=== PATIENT | female | born 1985 | race Caucasian/White ===

== ENCOUNTER 2017-10-04 02:48 | Emergency (ER) | payer OTHER ==
[2017-10-04] MEDS ORDERED: Albuterol/Ipratropium NEB.SOL* Albuterol 2.5 MG/Ipratropium 0.5 MG 3 ML INH PRN (05:02)
[2017-10-04] MEDS ORDERED: Albuterol 2.5 MG/3 ML NEB.SOL* (0.083%) INH ONE (05:02)
[2017-10-04] MEDS ORDERED: Oseltamivir CAP* 75 MG CAP PO ONE (05:03)
[2017-10-04] MEDS ORDERED: Codeine TAB* 30 MG PO ONE (06:58)
[2017-10-04] MEDS ORDERED: Albuterol HFA INHALER* 8 gm MDI INH SCH (07:00)
--- NOTE | 2017-10-04 07:04 | ED ---
Tanesha Seay Edward, scribed for Addi Calle MD on 10/04/17 at 0447 . Respiratory - HPI Summary HPI Summary: 32 y/o female presents to the ED c/o cough for 1 week, still present. Sx not alleviated or aggravated by anything. Pt is 16 weeks . Associated sx: vomiting starting this morning, slight fever last night (100), CP. Denies PMHx asthma. This is the pt's second . Last cough medications taken at 23: 30. - History of Current Complaint Chief Complaint: EDUpperRespComplaint Stated Complaint: COUGH, FEVER Time Seen by Provider: 10/04/17 04:43 Hx Obtained From: Patient Onset/Duration: Lasting Days Pain Intensity: 7 Character: Cough (Nonproductive) Aggravating Factor(s): Nothing Alleviating Factor(s): Nothing Associated Signs and Symptoms: Fever, Chest Pain with Cough - Allergy/Home Medications Allergies/Adverse Reactions: Allergies Allergy/AdvReac Type Severity Reaction Status Date / Time No Known Allergies Allergy Verified 04/29/15 17:30 PMH/Surg Hx/FS Hx/Imm Hx Previously Healthy: No Endocrine/Hematology History: Denies: Hx Diabetes, Hx Thyroid Disease Cardiovascular History: Denies: Hx Hypertension Respiratory History: Denies: Hx Asthma, Hx Chronic Obstructive Pulmonary Disease (COPD) GI History: Denies: Hx Ulcer - Surgical History Surgery Procedure, Year, and Place: gallbladder removed 2001 Infectious Disease History: No Infectious Disease History: Denies: Hx Hepatitis, Hx Human Immunodeficiency Virus (HIV), Traveled Outside the [place] in Last 30 Days - Social History Alcohol Use: Occasionally Hx Substance Use: No Substance Use Type: Reports: None Hx Tobacco Use: Yes Smoking Status (MU): Current Every Day Smoker Type: Cigarettes Amount Used/How Often: 1/2 PPD Length of Time of Smoking/Using Tobacco: 14 YRS Review of Systems Positive: Fever Eyes: Negative ENT: Negative Positive: Chest Pain Positive: Cough Positive: Vomiting, Nausea Genitourinary: Negative Musculoskeletal: Negative Skin: Negative Neurological: Negative Psychological: Normal All Other Systems Reviewed And Are Negative: Yes Physical Exam - Summary Physical Exam Summary: VITAL SIGNS: Reviewed. GENERAL: Patient is a well-developed and nourished female who is lying comfortable in the stretcher. Patient is not in any acute respiratory distress. HEAD AND FACE: No signs of trauma. No ecchymosis, hematomas or skull depressions. No sinus tenderness. EYES: PERRLA, EOMI x 2, No injected conjunctiva, no nystagmus. EARS: Hearing grossly intact. Ear canals and tympanic membranes are within normal limits. MOUTH: Oropharynx within normal limits. NECK: Supple, trachea is midline, no adenopathy, no JVD, no carotid bruit, no c- spine tenderness, neck with full ROM. CHEST: Symmetric, no tenderness at palpation LUNGS: Bilateral end expiratory wheezes. CVS: Regular rate and rhythm, S1 and S2 present, no murmurs or gallops appreciated. ABDOMEN: Soft, non-tender. No signs of distention. No rebound no guarding, and no masses palpated. Bowel sounds are normal. EXTREMITIES: FROM in all major joints, no edema, no cyanosis or clubbing. NEURO: Alert and oriented x 3. No acute neurological deficits. Speech is normal and follows commands. SKIN: Dry and warm Triage Information Reviewed: Yes Vital Signs On Initial Exam: Initial Vitals Temp Pulse Resp BP Pulse Ox 98.7 F 127 24 121/63 98 10/04/17 02:54 10/04/17 02:54 10/04/17 02:54 10/04/17 02:54 10/04/17 02:54 Vital Signs Reviewed: Yes Diagnostics - Vital Signs Vital Signs Temp Pulse Resp BP Pulse Ox 10/04/17 02:54 98.7 F 127 24 121/63 98 - Laboratory Lab Statement: Any lab studies that have been ordered have been reviewed, and results considered in the medical decision making process. Re-Evaluation - Re-Evaluation 1 Re-Evaluation Time: 06:58 Comment: Pt will be d/c home Disposition - Course Assessment/Plan: 32 y/o female presents to the ED c/o cough for 1 week, still present. Associated sx: vomiting starting this morning, slight fever last night (100), CP. INFLUENZA A POSITIVE. Pt would rather not take Tamiflu b/c there are no studies that say it is safe to take it during . Pt requests something for her cough, will be given codeine for her cough and Tylenol for her fever. Pt will be d/c home with f/u PCP. - Diagnoses Provider Diagnoses: Influenza A Discharge - Discharge Plan Condition: Stable Disposition: HOME Patient Education Materials: Influenza (ED), (ED) Referrals: [facility] [Outside] - 4 Days (PLEASE F/U IN 3-5 DAYS) Additional Instructions: PLEASE RETURN TO THE ED FOR THE RETURN OR WORSENING OF SYMPTOMS The documentation as recorded by the Tanesha vásquez Edward accurately reflects the service I personally performed and the decisions made by Luc killian Abdul, MD.
[2017-10-04 07:25] VITALS: BP 118/80
== END 2017-10-04 07:24 | disposition home or self-care (01) ==
LOC: ED 02:48
DX: O26.892 Other specified pregnancy related conditions, second trimester (principal); J09.X2 Influenza due to identified novel influenza A virus with other respiratory manifestations; O99.332 Smoking (tobacco) complicating pregnancy, second trimester; F17.210 Nicotine dependence, cigarettes, uncomplicated; Z3A.16 16 weeks gestation of pregnancy
CPT/HCPCS: 87502; 94640; 94760; 99282; A9270-GY

== ENCOUNTER 2017-11-06 13:51 | Emergency (ER) | payer OTHER ==
[2017-11-06] MEDS ORDERED: NS 0.9% 1000 ML* 1,000 ML IV ONE (14:12)
[2017-11-06 14:32] LABS: ABS Basophils 0 10^3/ul (0-0.2); ABS Eosinophils 0.2 10^3/ul (0-0.6); ABS Lymphocytes 2.3 10^3/ul (1.0-4.8); ABS Monocytes 0.6 10^3/ul (0-0.8); ABS Neutrophils 7.8 10^3/ul (1.5-7.7); ABS Nucleated RBC 0 10^3/ul; Eosinophil % 2.1 % (0-6); Hematocrit 36 % (35-47); Hemoglobin 12.3 g/dl (12.0-16.0); Lymphocyte % 21.1 % (25-47); Mean Corpuscular HGB Conc 34 g/dl (31-36); Mean Corpuscular Hemoglobin 29 pg (27-31); Mean Corpuscular Volume 84 fL (80-97); Mean Platelet Volume 10 um3 (7.4-10.4); Nucleated Red Blood Cells % 0; Platelet Count 169 10^3/ul (150-450); Red Blood Count 4.25 10^6/ul (4.0-5.4); Red Cell Distribution Width 15 % (10.5-15)
[2017-11-06 15:04] LABS: EGFR Non-African American 114.4 (>60)
--- NOTE | 2017-11-06 15:28 | RAD ---
HISTORY: Vaginal spotting. The gestational age by dates is: 21 weeks, 2 days COMPARISONS: None available at the time of dictation. TECHNIQUE: Multiple transverse and longitudinal ultrasound images were obtained of the gravid uterus using Grayscale, color Doppler, and M-mode Doppler imaging. FINDINGS: /PLACENTAL EVALUATION: Number of fetuses: Single Presentation: The variable cardiac activity: Not detected Gross motion: Not observed Placenta position: Anterior Amniotic fluid volume: Decreased BIOMETRY: Biparietal diameter: 21.4 cm 13 weeks, 4 days Head circumference: 9.46 cm 40 weeks, 3 days No other biometry GESTATIONAL AGE: The gestational age based on the BPD and head circumference ranges from 13 weeks, 4 days to 14 weeks, 3 days. This is discordant with age by dates. ANATOMY: Not evaluated CERVIX: The cervix is long and closed, without funneling.. OTHER: None IMPRESSION: SINGLE INTRAUTERINE GESTATION, WITH A GESTATIONAL AGE BETWEEN 13 WEEKS, 4 DAYS AND 14 WEEKS, 3 DAYS, DISCORDANT WITH THE AGE BY DATES. THE AMNIOTIC FLUID IS DECREASED. NO CARDIAC MOVEMENT OR GROSS MOVEMENT IS IDENTIFIED. THIS IS MOST CONSISTENT WITH EARLY FAILURE. RECOMMEND ATTENTION ON FOLLOW-UP IMAGING
[2017-11-06 16:04] VITALS: BP 114/73
[2017-11-06 16:22] LABS: Urine Appearance Cloudy; Urine Blood 3+ (Negative); Urine Color Yellow; Urine Ketones Negative (Negative); Urine Protein Negative (Negative); Urine Specific Gravity 1.017 (1.010-1.030); Urine Urobilinogen Negative (Negative)
--- NOTE | 2017-11-07 18:39 | ED ---
Mary Kay Seay Gabriel, scribed for Nghia De La Rosa MD on 11/06/17 at 1412 . - HPI Summary HPI Summary: This patient is a 32 year old F presenting to [facility] with a chief complaint of vaginal bleeding that began 2 days ago. Pt is 21 weeks , she determined this using a phone jah. The patient rates the pain 3/10 in severity. Patient reports ABD cramping, back cramping, and n/v. Patient denies fever and dysuria. Pt is still smoking and has not seen an OB. - History of Current Complaint Chief Complaint: EDOBProblems Stated Complaint: ABNORMAL BLEEDING Time Seen by Provider: 11/06/17 14:04 Hx Obtained From: Patient Chief Complaint: Concern for Embryonic Dem, Pain Onset/Duration: Started Days Ago - 2, Still Present Timing: Constant Severity: Mild Current Severity: Mild Pain Intensity: 3 Location of Pain: Other: - back Associated Signs and Symptoms: Positive: Negative - fever and dysuria, Other: - ABD cramping, back cramping, and n/v - Assessment Hx Now: No - Allergies/Home Medications Allergies/Adverse Reactions: Allergies Allergy/AdvReac Type Severity Reaction Status Date / Time No Known Allergies Allergy Verified 11/06/17 14:12 PMH/Surg Hx/FS Hx/Imm Hx Endocrine/Hematology History: Denies: Hx Diabetes, Hx Thyroid Disease Cardiovascular History: Denies: Hx Hypertension Respiratory History: Denies: Hx Asthma, Hx Chronic Obstructive Pulmonary Disease (COPD) GI History: Denies: Hx Ulcer - Surgical History Surgery Procedure, Year, and Place: gallbladder removed 2001 Infectious Disease History: No Infectious Disease History: Denies: Hx Hepatitis, Hx Human Immunodeficiency Virus (HIV), Traveled Outside the [place] in Last 30 Days - Social History Alcohol Use: Occasionally Hx Substance Use: No Substance Use Type: Reports: None Hx Tobacco Use: Yes Smoking Status (MU): Current Every Day Smoker Type: Cigarettes Amount Used/How Often: 1/2 PPD Length of Time of Smoking/Using Tobacco: 14 YRS Review of Systems Negative: Fever Positive: Abdominal Pain - cramping , Vomiting, Nausea Negative: dysuria Positive: Other - back cramping All Other Systems Reviewed And Are Negative: Yes Physical Exam - Summary Physical Exam Summary: VITAL SIGNS: Reviewed. GENERAL: Patient is an obese female who is lying comfortable in the stretcher. Patient is not in any acute respiratory distress. HEAD AND FACE: No signs of trauma. No ecchymosis, hematomas or skull depressions. No sinus tenderness. EYES: PERRLA, EOMI x 2, No injected conjunctiva, no nystagmus. EARS: Hearing grossly intact. Ear canals and tympanic membranes are within normal limits. MOUTH: Oropharynx within normal limits. NECK: Supple, trachea is midline, no adenopathy, no JVD, no carotid bruit, no c- spine tenderness, neck with full ROM. CHEST: Symmetric, no tenderness at palpation LUNGS: Clear to auscultation bilaterally. No wheezing or crackles. CVS: Regular rate and rhythm, S1 and S2 present, no murmurs or gallops appreciated. ABDOMEN: Soft, non-tender. No signs of distention. No rebound no guarding, and no masses palpated. Bowel sounds are normal. EXTREMITIES: FROM in all major joints, no edema, no cyanosis or clubbing. NEURO: Alert and oriented x 3. No acute neurological deficits. Speech is normal and follows commands. SKIN: Dry and warm - Physical Exam Triage Information Reviewed: Yes Vital Signs Reviewed: Yes Diagnostics - Vital Signs Vital Signs Temp Pulse Resp BP Pulse Ox 11/06/17 13:58 98.4 F 100 16 154/71 98 - Laboratory Result Diagrams: 11/06/17 14:22 11/06/17 14:22 Lab Statement: Any lab studies that have been ordered have been reviewed, and results considered in the medical decision making process. - Ultrasound No standard instances Ultrasound Interpretation Completed By: Radiologist - US reveals, per radiologist, SINGLE INTRAUTERINE GESTATION, WITH A GESTATIONAL AGE BETWEEN 13 WEEKS, 4 DAYS AND 14 WEEKS, 3 DAYS, DISCORDANT WITH THE AGE BY DATES. THE AMNIOTIC FLUID IS DECREASED. NO CARDIAC MOVEMENT OR GROSS MOVEMENT IS IDENTIFIED. THIS IS MOST CONSISTENT WITH EARLY FAILURE. RECOMMEND ATTENTION ON FOLLOW-UP IMAGING ED physician has reviewed this radiology report. Course/Dx - Course Assessment/Plan: US reveals, per radiologist, SINGLE INTRAUTERINE GESTATION, WITH A GESTATIONAL AGE BETWEEN 13 WEEKS, 4 DAYS AND 14. WEEKS, 3 DAYS, DISCORDANT WITH THE AGE BY DATES. THE AMNIOTIC FLUID IS DECREASED. NO . CARDIAC MOVEMENT OR GROSS MOVEMENT IS IDENTIFIED. THIS IS MOST CONSISTENT WITH EARLY. FAILURE. RECOMMEND ATTENTION ON FOLLOW-UP IMAGING. Test results with no significant abnormalities except for a beta HCG of 214. UA was negative for UTI. In the ED course the patient was given IV fluids.I discussed all the findings and test results with the patient. Patient was instructed to return to the emergency room immediately if any of the symptoms return or worsens. Plan of care was discussed with the patient and understands and agrees. All questions were answered at patient satisfaction. There were no further complaints or concerns. The patient is hemodynamically stable and alert and orinetedx3. Patient was diagnosed with demise. We discussed patient care with Dr. Dillard and they recommended following up with them [facility]. Patient will be discharged and follow up from Dr. Brink/Nishant. The patient is agreeable with this plan. - Diagnoses Provider Diagnoses: demise - Provider Notifications Discussed Care Of Patient With: Patti Dillard Time Discussed With Above Provider: 16:13 Instructed by Provider To: Have Pt Call For Appt. Discharge - Discharge Plan Condition: Stable Disposition: HOME Referrals: Patti Dillard MD [Medical Doctor] - As Soon As Possible Additional Instructions: RETURN TO EMERGENCY DEPARTMENT FOR ANY NEW OR WORSENING SYMPTOMS The documentation as recorded by the Mary Kay vásquez Gabriel accurately reflects the service I personally performed and the decisions made by , Nghia De La Rosa MD.
== END 2017-11-06 16:26 | disposition home or self-care (01) ==
LOC: ED 13:51
DX: O46.92 Antepartum hemorrhage, unspecified, second trimester (principal); Z3A.21 21 weeks gestation of pregnancy; R10.9 Unspecified abdominal pain; F17.210 Nicotine dependence, cigarettes, uncomplicated
CPT/HCPCS: 36415; 76815; 80053; 80307; 81003; 81015; 84702; 85025; 86850; 86900; 86901; 87086; 99282

== ENCOUNTER 2018-01-09 23:01 | Emergency (ER) | payer OTHER ==
[2018-01-10 00:21] LABS: Urine Appearance Clear; Urine Blood 1+ (Negative); Urine Color Straw; Urine Ketones Negative (Negative); Urine Protein Negative (Negative); Urine Specific Gravity 1.008 (1.010-1.030); Urine Urobilinogen Negative (Negative)
[2018-01-10 00:24] LABS: ABS Basophils 0.1 10^3/ul (0-0.2); ABS Eosinophils 0.2 10^3/ul (0-0.6); ABS Lymphocytes 2.1 10^3/ul (1.0-4.8); ABS Monocytes 0.5 10^3/ul (0-0.8); ABS Neutrophils 5.8 10^3/ul (1.5-7.7); ABS Nucleated RBC 0 10^3/ul; Eosinophil % 2.8 % (0-6); Hematocrit 39 % (35-47); Hemoglobin 12.8 g/dl (12.0-16.0); Lymphocyte % 23.9 % (25-47); Mean Corpuscular HGB Conc 33 g/dl (31-36); Mean Corpuscular Hemoglobin 28 pg (27-31); Mean Corpuscular Volume 85 fL (80-97); Mean Platelet Volume 9.3 um3 (7.4-10.4); Nucleated Red Blood Cells % 0.1; Platelet Count 189 10^3/ul (150-450); Red Blood Count 4.54 10^6/ul (4.0-5.4); Red Cell Distribution Width 15 % (10.5-15); White Blood Count 8.7 10^3/ul (3.5-10.8)
[2018-01-10 00:52] LABS: EGFR Non-African American 86.1 (>60)
[2018-01-10] MEDS ORDERED: Nicotine PATCH 14 MG/24 HR* PATCH TRANSDERM ONE (02:39)
[2018-01-10] MEDS ORDERED: Nicotine Inhaler* 10 MG AMP INH PRN (02:41)
[2018-01-10] MEDS ORDERED: Mouth Piece, Nicotine* 1 EACH CARTRIDGE INH PRN (02:41)
--- NOTE | 2018-01-10 02:43 | ED ---
Mary Kay Seay Gabriel, scribed for Hugh Gann MD on 01/09/18 at 2342 . Psychiatric Complaint - HPI Summary HPI Summary: This patient is a 32 year old F [facility] with a chief complaint of increased depression due to recent stress tonight. Pt had a 2 months ago had a D&C. She states she and her boyfriend were arguing tonight and she threatened to kill herself and he told her to do it. She bought what she thought were morphine pills and took 75 of them, 4 hours ago and along with this she had been drinking. She did this in an attempt to kill herself. She states she is currently sad but doesnt want to hurt herself. She feels bad for her mother. Pt has a history of SI. She announced on facebook that she was going to kill herself and someone saw this post and called the rubber stamp dies inspector. - History Of Current Complaint Chief Complaint: EDMentalHealth Time Seen by Provider: 01/09/18 23:30 Hx Obtained From: Patient Hx Last Menstrual Period: 04/05/15 Onset/Duration: Still Present Timing: Constant Severity Initially: Moderate Severity Currently: Moderate Character: Depressed Aggravating Factor(s): Recent Stress Related History: Positive For: Prior Psychiatric Issues Has Suicidal: Reports: Thoughts, With A Plan, Demonstrates Gesture - Allergies/Home Medications Allergies/Adverse Reactions: Allergies Allergy/AdvReac Type Severity Reaction Status Date / Time No Known Allergies Allergy Verified 11/06/17 14:12 PMH/Surg Hx/FS Hx/Imm Hx Endocrine/Hematology History: Denies: Hx Diabetes, Hx Thyroid Disease Cardiovascular History: Denies: Hx Hypertension Respiratory History: Denies: Hx Asthma, Hx Chronic Obstructive Pulmonary Disease (COPD) GI History: Denies: Hx Ulcer Psychiatric History: Reports: Hx Depression, Hx Suicide Attempt - Surgical History Surgery Procedure, Year, and Place: gallbladder removed 2001 Infectious Disease History: No Infectious Disease History: Denies: Hx Hepatitis, Hx Human Immunodeficiency Virus (HIV), Traveled Outside the [place] in Last 30 Days - Family History Known Family History: Negative: Respiratory Disease, Seizure Disorder - Social History Alcohol Use: Occasionally Hx Substance Use: No Substance Use Type: Reports: Marijuana Hx Tobacco Use: Yes Smoking Status (MU): Current Every Day Smoker Type: Cigarettes Amount Used/How Often: 1/2 PPD Length of Time of Smoking/Using Tobacco: 14 YRS Review of Systems Negative: Fever Psychological: Other - SI Positive: Depressed All Other Systems Reviewed And Are Negative: Yes Physical Exam - Summary Physical Exam Summary: Appearance: Well-appearing, Well-nourished, lying in bed comfortably Skin: Warm, dry, no obvious rash Eyes: sclera anicteric, no conjunctiva pallor, pupils are not pin point ENT: mucous membranes moist, pharynx appears normal, Neck: Supple, nontender Respiratory: Clear to auscultation, no signs of respiratory distress Cardiovascular: Normal S1, S2. No murmurs. Normal distal pulses in tibial and radial bilaterally, mildly hypertensive and mildly tachycardic Abdomen: Soft, nontender, normal active bowel sounds present Musculoskeletal: Normal, Strength/ROM Intact Neurological: A&Ox3, awake and alert, mentation is normal, speech is fluent and appropriate Psychiatric: pt is tearful Triage Information Reviewed: Yes Vital Signs On Initial Exam: Initial Vitals Pulse BP Pulse Ox 98 138/109 97 01/09/18 23:10 01/09/18 23:10 01/09/18 23:10 Vital Signs Reviewed: Yes Diagnostics - Vital Signs Vital Signs Temp Pulse Resp BP Pulse Ox 01/09/18 23:28 100 96 01/09/18 23:13 98.8 F 109 16 138/109 97 01/09/18 23:10 98 138/109 97 - Laboratory Lab Results: Lab Results 01/09/18 01/09/18 01/10/18 Range/Units 23:45 23:45 00:12 WBC 8.7 (3.5-10.8) 10^3/ul RBC 4.54 (4.0-5.4) 10^6/ul Hgb 12.8 (12.0-16.0) g/dl Hct 39 (35-47) % MCV 85 (80-97) fL MCH 28 (27-31) pg MCHC 33 (31-36) g/dl RDW 15 (10.5-15) % Plt Count 189 (150-450) 10^3/ul MPV 9.3 (7.4-10.4) um3 Neut % (Auto) 66.3 (38-83) % Lymph % (Auto) 23.9 L (25-47) % [place] % (Auto) 6.0 (0-7) % Eos % (Auto) 2.8 (0-6) % Baso % (Auto) 1.0 (0-2) % Absolute Neuts (auto) 5.8 (1.5-7.7) 10^3/ul Absolute Lymphs (auto) 2.1 (1.0-4.8) 10^3/ul Absolute Monos (auto) 0.5 (0-0.8) 10^3/ul Absolute Eos (auto) 0.2 (0-0.6) 10^3/ul Absolute Basos (auto) 0.1 (0-0.2) 10^3/ul Absolute Nucleated RBC 0 10^3/ul Nucleated RBC % 0.1 Sodium (139-145) mmol/L Potassium (3.5-5.0) mmol/L Chloride (101-111) mmol/L Carbon Dioxide (22-32) mmol/L Anion Gap (2-11) mmol/L BUN (6-24) mg/dL Creatinine (0.51-0.95) mg/dL Est GFR ( Amer) (>60) Est GFR (Non-Af Amer) (>60) BUN/Creatinine Ratio (8-20) Glucose (70-100) mg/dL Calcium (8.6-10.3) mg/dL Total Bilirubin (0.2-1.0) mg/dL AST (13-39) U/L ALT (7-52) U/L Alkaline Phosphatase (34-104) U/L Total Protein (6.4-8.9) g/dL Albumin (3.2-5.2) g/dL Globulin (2-4) g/dL Albumin/Globulin Ratio (1-3) Beta HCG, Quant mIU/mL Urine Color Straw Urine Appearance Clear Urine pH 6.0 (5-9) Ur Specific [place] 1.008 L (1.010-1.030) Urine Protein Negative (Negative) Urine Ketones Negative (Negative) Urine Blood 1+ A (Negative) Urine Nitrate Negative (Negative) Urine Bilirubin Negative (Negative) Urine Urobilinogen Negative (Negative) Ur Leukocyte Esterase Negative (Negative) Urine WBC (Auto) Absent (Absent) Urine RBC (Auto) Trace(0-2/hpf) (Absent) Ur Squamous Epith Cells Present A (Absent) Urine Bacteria Absent (Absent) Urine Glucose Negative (Negative) Urine Opiates Screen Presumptive positive A (None Detect) Acetaminophen mcg/mL Ur Barbiturates Screen None detected (None Detect) Ur Phencyclidine Scrn None detected (None Detect) Ur Amphetamines Screen None detected (None Detect) U Benzodiazepines Scrn None detected (None Detect) Urine Cocaine Screen Presumptive positive A (None Detect) U Cannabinoids Screen None detected (None Detect) Serum Alcohol (<10) mg/dL 01/10/18 01/10/18 Range/Units 00:12 00:12 WBC (3.5-10.8) 10^3/ul RBC (4.0-5.4) 10^6/ul Hgb (12.0-16.0) g/dl Hct (35-47) % MCV (80-97) fL MCH (27-31) pg MCHC (31-36) g/dl RDW (10.5-15) % Plt Count (150-450) 10^3/ul MPV (7.4-10.4) um3 Neut % (Auto) (38-83) % Lymph % (Auto) (25-47) % [place] % (Auto) (0-7) % Eos % (Auto) (0-6) % Baso % (Auto) (0-2) % Absolute Neuts (auto) (1.5-7.7) 10^3/ul Absolute Lymphs (auto) (1.0-4.8) 10^3/ul Absolute Monos (auto) (0-0.8) 10^3/ul Absolute Eos (auto) (0-0.6) 10^3/ul Absolute Basos (auto) (0-0.2) 10^3/ul Absolute Nucleated RBC 10^3/ul Nucleated RBC % Sodium 140 (139-145) mmol/L Potassium 3.9 (3.5-5.0) mmol/L Chloride 109 (101-111) mmol/L Carbon Dioxide 24 (22-32) mmol/L Anion Gap 7 (2-11) mmol/L BUN 6 (6-24) mg/dL Creatinine 0.78 (0.51-0.95) mg/dL Est GFR ( Amer) 110.8 (>60) Est GFR (Non-Af Amer) 86.1 (>60) BUN/Creatinine Ratio 7.7 L (8-20) Glucose 95 (70-100) mg/dL Calcium 9.0 (8.6-10.3) mg/dL Total Bilirubin 0.20 (0.2-1.0) mg/dL AST 22 (13-39) U/L ALT 31 (7-52) U/L Alkaline Phosphatase 67 (34-104) U/L Total Protein 6.8 (6.4-8.9) g/dL Albumin 4.1 (3.2-5.2) g/dL Globulin 2.7 (2-4) g/dL Albumin/Globulin Ratio 1.5 (1-3) Beta HCG, Quant 1.33 mIU/mL Urine Color Urine Appearance Urine pH (5-9) Ur Specific [place] (1.010-1.030) Urine Protein (Negative) Urine Ketones (Negative) Urine Blood (Negative) Urine Nitrate (Negative) Urine Bilirubin (Negative) Urine Urobilinogen (Negative) Ur Leukocyte Esterase (Negative) Urine WBC (Auto) (Absent) Urine RBC (Auto) (Absent) Ur Squamous Epith Cells (Absent) Urine Bacteria (Absent) Urine Glucose (Negative) Urine Opiates Screen (None Detect) Acetaminophen < 15 mcg/mL Ur Barbiturates Screen (None Detect) Ur Phencyclidine Scrn (None Detect) Ur Amphetamines Screen (None Detect) U Benzodiazepines Scrn (None Detect) Urine Cocaine Screen (None Detect) U Cannabinoids Screen (None Detect) Serum Alcohol 45 H (<10) mg/dL Result Diagrams: 01/10/18 00:12 01/10/18 00:12 Lab Statement: Any lab studies that have been ordered have been reviewed, and results considered in the medical decision making process. Course/Dx - Differential Dx/Clinical Impression Provider Diagnosis: Suicide attempt by adequate means Discharge - Sign-Out/Discharge Documenting (check all that apply): Discharge/Admit/Transfer - Discharge Plan Condition: Fair Disposition: PSYCHIATRIC FACILITY-[facility] Referrals: No Primary Care Phys,NOPCP [Primary Care Provider] - - Billing Disposition and Condition Condition: FAIR Disposition: PSY-[facility] The documentation as recorded by the Mary Kay vásquez Gabriel accurately reflects the service I personally performed and the decisions made by me, Hugh Gann MD.
[2018-01-10 08:48] VITALS: BP 109/59
--- NOTE | 2018-01-10 11:21 | ED ---
Progress - Progress Note Progress Note: Ms. Manzo presented after an attempted OD secondary to situation trauma. She was medically cleared and had a MHE. - Consult/PCP Time Called: 12:45 Course/Dx - Course Course Of Treatment: Ms. Manzo had a MHE and Dr. Stout felt that the patient was safe for D/C and that this was a substance abuse related mood disorder that has now resolved. - Diagnoses Provider Diagnoses: Mood disorder, drug-induced Discharge - Sign-Out/Discharge Documenting (check all that apply): Discharge/Admit/Transfer - Discharge Plan Condition: Stable Disposition: HOME Referrals: No Primary Care Phys,NOPCP [Primary Care Provider] - - Billing Disposition and Condition Condition: STABLE Disposition: HOME
== END 2018-01-10 10:23 | disposition home or self-care (01) ==
LOC: ED 23:01
DX: T40.2X2A Poisoning by other opioids, intentional self-harm, initial encounter (principal); Y92.009 Unspecified place in unspecified non-institutional (private) residence as the place of occurrence of the external cause; F32.9 Major depressive disorder, single episode, unspecified; Z91.5 Personal history of self-harm; F17.210 Nicotine dependence, cigarettes, uncomplicated
CPT/HCPCS: 36415; 80053; 80307; 80320; 80329; 81003; 81015; 84702; 85025; 99284; A9270-GY; G0480